=== PATIENT | male | born 2000 | race Caucasian/White ===

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

== ENCOUNTER 2021-04-09 13:23 | Emergency (ER) | payer BC ==
[~2021-04-09] VITALS: Ht 180.3 cm; Wt 68.0 kg
[~2021-04-09 13:23] MED LIST: HYDR-4280 PO; IBUP-1971 PO
[2021-04-09 13:28] VITALS: BP_SYST 127
[2021-04-09 13:59] LABS: STREPTOCOCCUS A SCREEN (RAPID) NEGATIVE (NEGATIVE)
[2021-04-09 14:06] LABS: MONOTEST NEGATIVE (NEGATIVE)
[2021-04-09] MEDS ORDERED: IBUP-1971 PO (14:30)
[2021-04-09 14:36] VITALS: BP_SYST 108
== END 2021-04-09 14:43 | disposition home or self-care (01) ==
LOC: SED 13:23
DX: J02.9 Acute pharyngitis, unspecified (principal); Z79.899 Other long term (current) drug therapy
CPT/HCPCS: 36415; 86308-TC; 86403; 87081; 99283